=== PATIENT | female | born 1990 | race Caucasian/White ===

== ENCOUNTER 2017-01-10 12:29 | Emergency (ER) | payer OTHER ==
--- NOTE | 2017-01-10 16:07 | DIAGNOSTIC IMAGING REPORT ---
PROCEDURE: CT ABD/PELVIS WITH CONTRAST CLINICAL INDICATION: Right lower quadrant pain. TECHNIQUE: 125 ml of Isovue 300 were injected intravenously and axial images were obtained of the entire abdomen and pelvis with sagittal and coronal reformations. COMPARISON: Pelvic ultrasound 01/10/2017 FINDINGS: ABDOMEN: Lung base are clear. Heart size is normal. Liver, gallbladder, pancreas, spleen, adrenal glands, kidneys and abdominal aorta are normal. PELVIS: Normal appendix. IUD in place. Normal adnexa and bladder. Trace free fluid the pelvis. No mass or inflammatory changes. Bones are unremarkable. IMPRESSION: 1. Normal appendix 2. Trace free fluid in the pelvis likely resulting from an occult ruptured ovarian cyst. 3. IUD in place 4. Results discussed with MIMA Zimmerman All CT scans at this facility use dose modulation, iterative reconstruction, and/or weight-based dosing when appropriate to reduce radiation dose to as low as reasonably achievable.
--- NOTE | 2017-01-10 16:17 | ED CLINICAL REPORT ---
Clinical Report - Physicians/[facility] [address] [place] [address] 01/10/2017 12:31 Patient: SHIREEN DANIELS Arrived- By private vehicle. Historian- patient. HISTORY OF PRESENT ILLNESS Chief Complaint: ABDOMINAL PAIN. It is described as located in the right pelvis and in the pelvic area. This started just prior to arrival and is still present. The patient has had nausea. No vomiting or diarrhea. (patient reports severe abdominal pain since this morning. Patient reports last insertion of her IV was about 8 weeks previously, in mid November. She has had some cramping and spotting since. Reports similar pain of her right pelvis about 20 December, lasting a few days, however she had on the scene of the time.). REVIEW OF SYSTEMS No constipation, black stools, difficulty with urination, pain with urination or fever. No chest pain, difficulty breathing or chills. All systems otherwise negative, except as recorded above. PAST HISTORY Problems: Ovarian Cyst. Additional Surgeries: no known surgeries. Medications: Mirena Intrauterine. Zoloft Oral. Allergies: ASA. Neomycin. SOCIAL HISTORY Smoker- current status unknown. Alcohol use. No drug use. PHYSICAL EXAM Appearance: Alert. ENT: Pharynx normal. Neck: Normal inspection. CVS: Normal heart rate and rhythm. Heart sounds normal. Respiratory: No respiratory distress. Breath sounds normal. Chest nontender. No rales. Abdomen: Soft. Mild tenderness in the right lower quadrant and suprapubic area. Back: Normal inspection. No CVA tenderness. : Normal external exam. Speculum exam normal. No vaginal bleeding. Bimanual exam normal. No tenderness present on bimanual exam. (IUD in place, chaperoned with [employer]). Skin: Skin warm. Normal skin color. Neuro: Oriented X 3. No motor deficit. LABS, X-RAYS, AND EKG Abdominal CT: IMPRESSION: 1. Normal appendix 2. Trace free fluid in the pelvis likely resulting from an occult ruptured ovarian cyst. 3. IUD in place 4. Results discussed with Kirk Torres PAC All CT scans at this facility use dose modulation, iterative reconstruction, and/or weight-based dosing when appropriate to reduce radiation dose to as low as reasonably achievable. Electronically Final signed by:Thong Murdock MD 01/10/2017 4:07:19 PM. Pelvic Sonogram: IMPRESSION: 1. IUD in satisfactory position 2. 1.8 cm left ovarian corpus luteum cyst 3. Small amount of free fluid in the pelvis. Electronically Final signed by:Thong Murdock MD 01/10/2017 4:40:46 PM. Laboratory Tests: UA-Culture if indicated: (ANDREW: 01/10/2017 13:12) ( [facility] 01/10/2017 13:57) Final results Test Result Flag Units (Reference) URINE COLOR YELLOW URINE APPEARANCE CLEAR URINE GLUCOSE NEGATIVE (NEGATIVE) URINE BILIRUBIN NEGATIVE (NEGATIVE) URINE KETONE NEGATIVE (NEGATIVE) URINE SPECIFIC GRAVITY <= 1.005 L (1.010-1.030) URINE PH 6.5 (5.0-8.0) URINE PROTEIN NEGATIVE (NEGATIVE) URINE UROBILINOGEN 0.2 EU/dL (0.2-1.0) URINE NITRITE NEGATIVE (NEGATIVE) URINE BLOOD NEGATIVE (NEGATIVE) URINE LEUK ESTERASE NEGATIVE (NEGATIVE) URINE RBC RARE rbc/hpf (0-1) URINE WBC NONE SEEN wbc/hpf (0-1) URINE EPITHELIAL CELLS 0-1 EPI/hpf (0-5) URINE BACTERIA NONE SEEN (NONE SEEN) URINE COMMENT CULT NOT INDICATED URINE CULTURES ARE SET-UP BASED ON THE FOLLOWING CRITERIA:POSITIVE NITRITEPOSITIVE LEUKOCYTE ESTERASEGREATER THAN 10 WHITE BLOOD CELLSMODERATE (2+) OR GREATER BACTERIA Urine: (ANDREW: 01/10/2017 13:12) ( [facility] 01/10/2017 13:29) Final results Test Result Flag Units (Reference) URINE NEGATIVE CBC w Diff: (ANDREW: 01/10/2017 13:12) ( [facility] 01/10/2017 13:56) Final results Test Result Flag Units (Reference) WHITE BLOOD COUNT 10.0 K/uL (4.5-11.5) RED BLOOD COUNT 4.51 M/uL (4.00-5.20) HEMOGLOBIN 14.5 gm/dL (12.0-16.0) HEMATOCRIT 42.3 % (36.0-46.0) MEAN CELL VOLUME 94 fL (80-100) MEAN CORPUSCULAR HGB 32 pg (26-34) MEAN CORPUSCULAR HGB CONC 34 g/dL (31-37) RED CELL DISTRIBUTION WIDTH 13.0 % (11.6-14.8) PLATELET COUNT 171 K/uL (150-400) NEUTROPHIL % 71.1 % (50-75) LYMPH % 19.4 L % (25-40) MONO % 7.6 % (3-14) EOSINOPHIL % 1.4 % (0-4) BASOPHIL % 0.5 % (0-2) CMP: (ANDREW: 01/10/2017 13:12) ( MsgRcvd 01/10/2017 13:48) Final results Test Result Flag Units (Reference) GLUCOSE 66 L mg/dL (70-110) BUN 9 mg/dL (7-18) CREATININE 0.8 mg/dL (0.6-1.3) Estimated GFR >60 mL/min Estimated GFR- >60 mL/min Note: Persistent reduction over 3 months in eGFR<60 mL/min/1.73 m2 defines CKD. Patients with eGFR values>=60 mL/min/1.73 m2 may also have CKD if evidence ofpersistent proteinuria. Additional information may be foundat www.kidney.org. SODIUM 141 mmol/L (136-145) POTASSIUM 3.4 L mmol/L (3.5-5.1) CHLORIDE 104 mmol/L (98-107) CARBON DIOXIDE 25 mmol/L (21-32) CALCIUM 8.8 mg/dL (8.5-10.1) TOTAL PROTEIN 7.1 g/dL (6.4-8.2) ALBUMIN 3.9 g/dL (3.3-5.0) BILIRUBIN, TOTAL 0.3 mg/dL (0.0-1.0) ALKALINE PHOSPHATASE 102 U/L (46-116) AST (SGOT) 19 U/L (15-37) ALT (SGPT) 20 U/L (12-78) . PROGRESS AND PROCEDURES Course of Care: patient with cyst. Likely recent ovarian cyst rupture. Otherwise with no signs of torsion, abdominal mass, or signs of major infectious process. No signs of acute surgical abdomen. Patient stable. To f/u outpatient. 01/10/2017 16:54 BP: 109/69. HR: 82. RR: 18. O2 saturation: 100%. Temp: 98 F. Pain level now: 3/10. Patient is stable. Symptoms better. Patient/family counseled. Differential Diagnosis: I considered gastritis, gastroenteritis, acute appendicitis, diverticulitis, small bowel obstruction, adhesions, biliary colic, hepatitis, splenic injury, splenic rupture, intraabdominal abscess, urinary tract infection, cystitis, ovarian cyst and pelvic inflammatory disease as a possible cause of abdominal pain in this patient. This is a partial list of diagnoses considered. Disposition: Discharged. Condition: good. CLINICAL IMPRESSION Pelvic pain. Ruptured ovarian cyst. INSTRUCTIONS Drink plenty of fluids. Warnings: Further evaluation is necessary. SEDATIVE MEDICATION: You were given sedative medication during your visit. Do not drive or operate dangerous machinery. Prescription Medications: Hydrocodone/APAP 5mg / 325mg: take 1 orally every 8 hours. Dispense ten (10). No refill. Zofran (orally disintegrating tablets) 4 mg: take 1 orally every 6 hours for 3 days as needed for nausea. Dispense ten (10). No refill. Substitution is permissible. Follow-up: Follow up with doctor as needed. (Electronically signed by Susu Torres P.A.-C 01/10/2017 17:27)
--- NOTE | 2017-01-10 16:17 | ED ORDER SUMMARY ---
..... Patient: SHIREEN DANIELS OrderSheet [facility] VisitID: [id number] [address] [place] [address] 26y, F Registration Date/Time: 01/10/2017 ORDER SHEET Weight: 63.5 kg (stated) Allergies: ASA, Neomycin GENERAL ORDERS: UA-Culture if indicated Urgent (13:10 01/10/2017 LSullivan R.N. verbal order read back to EKoroleva P.A.-C) (Ack 13:12 KHoerner) (13:14 LSullivan R.N.) Urine Urgent (13:10 01/10/2017 LSullivan R.N. verbal order read back to EKoroleva P.A.-C) (Ack 13:12 KHoerner) (13:14 LSullivan R.N.) CBC w Diff Urgent (13:31 01/10/2017 EKoroleva P.A.-C) (Ack 13:34 KHoerner) (13:36 LSullivan R.N.) CMP Urgent (13:31 01/10/2017 EKoroleva P.A.-C) (Ack 13:34 KHoerner) (13:36 LSullivan R.N.) US Pelvic Complete w Transvag Urgent (14:15 01/10/2017 EKoroleva P.A.-C) (Ack 14:16 KHoerner) (15:53 KHoerner) CT Abd/Pel w Cont (Yes) (see lab) Urgent (15:28 01/10/2017 EKoroleva P.A.-C) (Ack 15:30 KHoerner) (15:53 KHoerner) Wet Prep (Cervix) (c) Urgent (15:51 01/10/2017 EKoroleva P.A.-C) (15:51 KHoerner) MEDICATION ORDERS: Phenergan IV 12.5 mg (HIGH ALERT MEDICATION, NOW) (13:31 01/10/2017 EKoroleva P.A.-C) (13:50 JSimbeck R.N.) IV FLUIDS: IV Saline Lock (13:09 01/10/2017 LSullivan RSaranyaN. verbal order read back to Monserrat Arnett) (13:14 Zafar RSaranyaN.) Dilaudid IV 0.5 mg (HIGH ALERT MEDICATION, NOW) (13:31 01/10/2017 Monserrat Mendiola.Kushal-C) (13:50 Fisheck RSaranyaN.) Dilaudid IV 0.5 mg (HIGH ALERT MEDICATION, NOW) (16:56 01/10/2017 LSullivan R.N. verbal order read back to Monserrat Ramirez-C) (16:57 LSullivan R.N.) ORDER SHEET NOTES: [Electronically signed by Noelle Cedillo R.N. (16:59 01/10/2017)] [Electronically signed by Susu Torres P.A.-C (17:27 01/10/2017)] [Electronically locked/signed by Noelle Cedillo R.N. (16:59 01/10/2017)]
--- NOTE | 2017-01-10 16:17 | ED NURSING NOTES ---
Clinical Report - Nurses [place] [address] [place] [address] 01/10/2017 12:31 Patient: SHIREEN DANIELS TRIAGE Triage time 12:45. Acuity: LEVEL 3. Chief Complaint: (Abd pain onset 0800 today RLQ >LLQ, nausea.). SEPSIS SCREEN: Sepsis Screen. Negative (no infection suspected/documented). KIMBERLI COMA SCORE: [place] Coma Scale: 15- eyes open spontaneously (4); best verbal response- oriented x 4 (5); best motor response- obeys commands (6). --12:53 Toribio Jha R.N. 12:45 01/10/17. BP: 122/67 (regular adult cuff) taken on the left arm, while lying. HR: 82. RR: 16. O2 saturation: 100% on room air. Temp: 98.1 F (oral). Pain level now: 04/21. --12:53 Toribio Jha R.N. Weight: 63.5 kg stated. Height/Length: 72 inches Per Patient. BMI: 19. --12:47 Toribio Jha R.N. Medications Zoloft Oral. --12:47 Toribio Jha R.N. Mirena Intrauterine. --12:48 Toribio Jha R.N. Allergies ASA. --12:46 Toribio Jha R.N. Neomycin. --12:47 Toribio Jha R.N. History Arrived by private vehicle. Historian: patient. Accompanied by friend. PAST MEDICAL HX: Last normal menstrual period unknown. SOCIAL HX: Heavy tobacco smoker (cigarette)- less than 1 pack per day. Occasional alcohol use. No drug use. ABUSE ASSESSMENT: No report of abuse. --12:53 Toribio Jha R.N. PROBLEMS: Ovarian Cyst. --12:48 Toribio Jha R.N. ADDITIONAL SURGERIES: no known surgeries. Interventions ID band on patient. To treatment room. --12:53 Toribio Jha R.N. PHYSICAL ASSESSMENT Ambulatory to room. GENERAL / NEURO / PSYCH: Alert. Appears in pain. HEENT: Mucous membranes are pink. RESPIRATORY: Respirations not labored. Breath sounds within normal limits. CVS: Capillary refill less than 2 seconds. GI / : The patient has had nausea. Abdomen soft. Abdominal tenderness. Guarding present. Bowel sounds within normal limits. SKIN: Skin is warm and dry. --13:36 Toribio Jha R.N. NURSING PROGRESS NOTES 13:14 01/10/2017 Site #1 started via IV in the right antecubital space with an 20g angiocath, with aseptic technique and good blood return; one attempt. Blood drawn: rainbow set. Labeled in the presence of the patient and sent to the lab. Saline lock flushed with 10 mL saline. --13:14 Noelle Cedillo R.N. 13:37 01/10/17. Patient ID band checked for patient name and birthdate: patient confirmed. Clean catch urine collected with return of yellow-colored clear urine; sample sent to lab. Specimen labeled in the presence of the patient. --13:37 Noelle Cedillo R.N. 13:45 01/10/2017 PHENERGAN (Promethazine HCl) IVP 12.5 mg given over 1 minute(s) via site #1. Allergies verified and confirmed 5 rights. IV patency established. IV site checked: no pain, redness, or swelling. IV flushed thoroughly pre- and post-medication administration. IVP given by RN. --13:50 Toribio Jha R.N. 13:47 01/10/2017 Dilaudid (HYDROmorphone HCl PF) IVP 0.5 mg given over 1 minute(s) via site #1. Allergies verified, confirmed 5 rights and sedative warning given to the patient. IV patency established. IV site checked: no pain, redness, or swelling. IV flushed thoroughly pre- and post-medication administration. IVP given by RN. --13:50 Toribio Jha R.N. 14:15 01/10/2017 PHENERGAN IVP Response: no adverse reaction symptoms have improved the patient feels better. --15:24 Toribio Jha R.N. 14:15 01/10/2017 Dilaudid IVP Response: no adverse reaction pain is improving. Symptoms have improved. --15:25 Toribio Jha R.N. 16:52 01/10/2017 Dilaudid (HYDROmorphone HCl PF) IVP 0.5 mg given over 1 minute(s) via site #1. Confirmed 5 rights and sedative warning given. --16:57 Noelle Cedillo R.N. 16:54 01/10/2017 Site #1 removed upon discharge. Catheter intact. Bandage applied. --16:57 Noelle Cedillo R.N. DISPOSITION / DISCHARGE Departure time: 16:54. Condition at departure: improved. No learning barriers present. Discharge instructions provided and reviewed with county engineer and the patient. Reviewed medication(s) information. Prescription(s) given to the patient. Reviewed referral to family practice for followup. Verbalized understanding. Written instructions provided. The patient was discharged home and accompanied by county engineer. She left the Emergency Department via private vehicle. --16:59 Noelle Cedillo R.N. 16:54 01/10/17. BP: 109/69. HR: 82. RR: 18. O2 saturation: 100%. Temp: 98 F. Pain level now: 10/19. --16:59 Noelle Cedillo R.N. Locked/Released at 01/10/2017 16:59 by Noelle Cedillo R.N.
--- NOTE | 2017-01-10 16:17 | ED ORDER SUMMARY ---
..... Patient: SHIREEN DANIELS OrderSheet [facility] VisitID: [id number] [address] [place] [address] 26y, F Registration Date/Time: 01/10/2017 ORDER SHEET Weight: 63.5 kg (stated) Allergies: ASA, Neomycin GENERAL ORDERS: UA-Culture if indicated Urgent (13:10 01/10/2017 LSullivan R.N. verbal order read back to EKoroleva P.A.-C) (Ack 13:12 KHoerner) (13:14 LSullivan R.N.) Urine Urgent (13:10 01/10/2017 LSullivan R.N. verbal order read back to EKoroleva P.A.-C) (Ack 13:12 KHoerner) (13:14 LSullivan R.N.) CBC w Diff Urgent (13:31 01/10/2017 EKoroleva P.A.-C) (Ack 13:34 KHoerner) (13:36 LSullivan R.N.) CMP Urgent (13:31 01/10/2017 EKoroleva P.A.-C) (Ack 13:34 KHoerner) (13:36 LSullivan R.N.) US Pelvic Complete w Transvag Urgent (14:15 01/10/2017 EKoroleva P.A.-C) (Ack 14:16 KHoerner) (15:53 KHoerner) CT Abd/Pel w Cont (Yes) (see lab) Urgent (15:28 01/10/2017 EKoroleva P.A.-C) (Ack 15:30 KHoerner) (15:53 KHoerner) Wet Prep (Cervix) (c) Urgent (15:51 01/10/2017 EKoroleva P.A.-C) (15:51 KHoerner) MEDICATION ORDERS: Phenergan IV 12.5 mg (HIGH ALERT MEDICATION, NOW) (13:31 01/10/2017 EKoroleva P.A.-C) (13:50 JSimbeck R.N.) IV FLUIDS: IV Saline Lock (13:09 01/10/2017 LSullivan RSaranyaN. verbal order read back to Monserrat Arnett) (13:14 Zafar RSaranyaN.) Dilaudid IV 0.5 mg (HIGH ALERT MEDICATION, NOW) (13:31 01/10/2017 Monserrat Mendiola.Kushal-C) (13:50 Fisheck RSaranyaN.) Dilaudid IV 0.5 mg (HIGH ALERT MEDICATION, NOW) (16:56 01/10/2017 LSullivan R.N. verbal order read back to Monserrat Ramirez-C) (16:57 LSullivan R.N.) ORDER SHEET NOTES: [Electronically signed by Noelle Cedillo R.N. (16:59 01/10/2017)] [Electronically signed by Susu Torres P.A.-C (17:27 01/10/2017)] [Electronically locked/signed by Noelle Cedillo R.N. (16:59 01/10/2017)]
--- NOTE | 2017-01-10 16:17 | ED NURSING NOTES ---
Clinical Report - Nurses [place] [address] [place] [address] 01/10/2017 12:31 Patient: SHIREEN DANIELS TRIAGE Triage time 12:45. Acuity: LEVEL 3. Chief Complaint: (Abd pain onset 0800 today RLQ >LLQ, nausea.). SEPSIS SCREEN: Sepsis Screen. Negative (no infection suspected/documented). KIMBERLI COMA SCORE: [place] Coma Scale: 15- eyes open spontaneously (4); best verbal response- oriented x 4 (5); best motor response- obeys commands (6). --12:53 Toribio Jha R.N. 12:45 01/10/17. BP: 122/67 (regular adult cuff) taken on the left arm, while lying. HR: 82. RR: 16. O2 saturation: 100% on room air. Temp: 98.1 F (oral). Pain level now: 04/21. --12:53 Toribio Jha R.N. Weight: 63.5 kg stated. Height/Length: 72 inches Per Patient. BMI: 19. --12:47 Toribio Jha R.N. Medications Zoloft Oral. --12:47 Toribio Jha R.N. Mirena Intrauterine. --12:48 Toribio Jha R.N. Allergies ASA. --12:46 Toribio Jha R.N. Neomycin. --12:47 Toribio Jha R.N. History Arrived by private vehicle. Historian: patient. Accompanied by friend. PAST MEDICAL HX: Last normal menstrual period unknown. SOCIAL HX: Heavy tobacco smoker (cigarette)- less than 1 pack per day. Occasional alcohol use. No drug use. ABUSE ASSESSMENT: No report of abuse. --12:53 Toribio Jha R.N. PROBLEMS: Ovarian Cyst. --12:48 Toribio Jha R.N. ADDITIONAL SURGERIES: no known surgeries. Interventions ID band on patient. To treatment room. --12:53 Toribio Jha R.N. PHYSICAL ASSESSMENT Ambulatory to room. GENERAL / NEURO / PSYCH: Alert. Appears in pain. HEENT: Mucous membranes are pink. RESPIRATORY: Respirations not labored. Breath sounds within normal limits. CVS: Capillary refill less than 2 seconds. GI / : The patient has had nausea. Abdomen soft. Abdominal tenderness. Guarding present. Bowel sounds within normal limits. SKIN: Skin is warm and dry. --13:36 Toribio Jha R.N. NURSING PROGRESS NOTES 13:14 01/10/2017 Site #1 started via IV in the right antecubital space with an 20g angiocath, with aseptic technique and good blood return; one attempt. Blood drawn: rainbow set. Labeled in the presence of the patient and sent to the lab. Saline lock flushed with 10 mL saline. --13:14 Noelle Cedillo R.N. 13:37 01/10/17. Patient ID band checked for patient name and birthdate: patient confirmed. Clean catch urine collected with return of yellow-colored clear urine; sample sent to lab. Specimen labeled in the presence of the patient. --13:37 Noelle Cedillo R.N. 13:45 01/10/2017 PHENERGAN (Promethazine HCl) IVP 12.5 mg given over 1 minute(s) via site #1. Allergies verified and confirmed 5 rights. IV patency established. IV site checked: no pain, redness, or swelling. IV flushed thoroughly pre- and post-medication administration. IVP given by RN. --13:50 Toribio Jha R.N. 13:47 01/10/2017 Dilaudid (HYDROmorphone HCl PF) IVP 0.5 mg given over 1 minute(s) via site #1. Allergies verified, confirmed 5 rights and sedative warning given to the patient. IV patency established. IV site checked: no pain, redness, or swelling. IV flushed thoroughly pre- and post-medication administration. IVP given by RN. --13:50 Toribio Jha R.N. 14:15 01/10/2017 PHENERGAN IVP Response: no adverse reaction symptoms have improved the patient feels better. --15:24 Toribio Jha R.N. 14:15 01/10/2017 Dilaudid IVP Response: no adverse reaction pain is improving. Symptoms have improved. --15:25 Toribio Jha R.N. 16:52 01/10/2017 Dilaudid (HYDROmorphone HCl PF) IVP 0.5 mg given over 1 minute(s) via site #1. Confirmed 5 rights and sedative warning given. --16:57 oNelle Cedillo R.N. 16:54 01/10/2017 Site #1 removed upon discharge. Catheter intact. Bandage applied. --16:57 Noelle Cedillo R.N. DISPOSITION / DISCHARGE Departure time: 16:54. Condition at departure: improved. No learning barriers present. Discharge instructions provided and reviewed with finance director and the patient. Reviewed medication(s) information. Prescription(s) given to the patient. Reviewed referral to family practice for followup. Verbalized understanding. Written instructions provided. The patient was discharged home and accompanied by finance director. She left the Emergency Department via private vehicle. --16:59 Noelle Cedillo R.N. 16:54 01/10/17. BP: 109/69. HR: 82. RR: 18. O2 saturation: 100%. Temp: 98 F. Pain level now: 10/19. --16:59 Noelle Cedillo R.N. Locked/Released at 01/10/2017 16:59 by Noelle Cedillo R.N.
--- NOTE | 2017-01-10 16:41 | DIAGNOSTIC IMAGING REPORT ---
PROCEDURE: US COMPLETE PELVIC W/TRANSVAG INDICATION: PAIN TECHNIQUE: Transabdominal and endovaginal aiken scale and color Doppler sonographic images of the female pelvis were obtained. COMPARISON: None. FINDINGS: TRANSABDOMINAL SCANS: Normal kidneys. The uterus not well visualized. TRANSVAGINAL SCANS: Anteverted uterus measures 5.2 x 4.2 x 2.[address] in satisfactory position. Myometrium is unremarkable. Endometrium measures 8 mm. Small amount of fluid in the endocervical canal. Right ovary measures 3.8 x 2.1 x 2.3 cm and left ovary 3.6 x 2.0 x 2.4 cm. Small peripheral follicles present. 1.8 cm left ovarian corpus luteum cyst. Normal vascular flow. Small left free fluid the pelvis. IMPRESSION: 1. IUD in satisfactory position 2. 1.8 cm left ovarian corpus luteum cyst 3. Small amount of free fluid in the pelvis.
--- NOTE | 2017-01-10 17:27 | ED MED RECONCILIATION SUMMARY ---
Patient: SHIREEN DANIELS Medication Reconciliation Report [facility] VisitID: [id number] [address] [place] [address] 26y, F Registration Date/Time: 01/10/2017 Weight: 63.5 kg Height/Length: 72 in. BMI: 19.0 ALLERGIES: ASA, Neomycin The patient's Home Medications are listed below: THE FOLLOWING MEDICATIONS NEED TO BE RECONCILED: Mirena Intrauterine Zoloft Oral The source(s) of the original Home Medication information: Not obtained. The following Medications were given to the patient in the Emergency Department: PHENERGAN [IVP] IVP 12.5 mg, administered: 01/10/2017 1:45:00 PM Dilaudid [IVP] IVP 0.5 mg, administered: 01/10/2017 1:47:00 PM Dilaudid [IVP] IVP 0.5 mg, administered: 01/10/2017 4:52:00 PM The following Medications were prescribed to the patient: Hydrocodone/APAP 5mg / 325mg: take 1 orally every 8 hours. Dispense ten (10). No refill. -- Susu Torres, P.A.-C Zofran (orally disintegrating tablets) 4 mg: take 1 orally every 6 hours for 3 days as needed for nausea. Dispense ten (10). No refill. Substitution is permissible. -- Susu Torres, P.A.-C
--- NOTE | 2017-01-10 17:27 | ED MAR SUMMARY ---
..... Medication Administration Record [facility] [address] [place] [address] Patient: SHIREEN DANIELS Visit ID: [id number] 26y, F Weight: 63.5 kg Height/Length: 72 in BMI: 19 ALLERGIES: Neomycin, ASA Given 13:45 01/10/2017 Toribio Jha R.N. Medication Administered: PHENERGAN [IVP] (PROMETHAZINE HCL), Dose: 12.5 mg IVP over 1 minute(s), Site: #1 right AC. Medication Ordered: Phenergan IV 12.5 mg (HIGH ALERT MEDICATION, NOW). Given 13:47 01/10/2017 Toribio Jha R.N. Medication Administered: DILAUDID [IVP] (HYDROMORPHONE HCL PF), Dose: 0.5 mg IVP over 1 minute(s), Site: #1 right AC. Medication Ordered: Dilaudid IV 0.5 mg (HIGH ALERT MEDICATION, NOW). Given 16:52 01/10/2017 Noelle Cedillo R.N. Medication Administered: DILAUDID [IVP] (HYDROMORPHONE HCL PF), Dose: 0.5 mg IVP over 1 minute(s), Site: #1 right AC. Medication Ordered: Dilaudid IV 0.5 mg (HIGH ALERT MEDICATION, NOW).
--- NOTE | 2017-01-10 17:27 | ED MAR SUMMARY ---
..... Medication Administration Record [facility] [address] [address] Patient: SHIREEN DANIELS Visit ID: [id number] 26y, F Weight: 63.5 kg Height/Length: 72 in BMI: 19 ALLERGIES: Neomycin, ASA Given 13:45 01/10/2017 Toribio Jha R.N. Medication Administered: PHENERGAN [IVP] (PROMETHAZINE HCL), Dose: 12.5 mg IVP over 1 minute(s), Site: #1 right AC. Medication Ordered: Phenergan IV 12.5 mg (HIGH ALERT MEDICATION, NOW). Given 13:47 01/10/2017 Toribio Jha R.N. Medication Administered: DILAUDID [IVP] (HYDROMORPHONE HCL PF), Dose: 0.5 mg IVP over 1 minute(s), Site: #1 right AC. Medication Ordered: Dilaudid IV 0.5 mg (HIGH ALERT MEDICATION, NOW). Given 16:52 01/10/2017 Noelle Cedillo R.N. Medication Administered: DILAUDID [IVP] (HYDROMORPHONE HCL PF), Dose: 0.5 mg IVP over 1 minute(s), Site: #1 right AC. Medication Ordered: Dilaudid IV 0.5 mg (HIGH ALERT MEDICATION, NOW).
--- NOTE | 2017-01-10 17:27 | ED DISCHARGE INSTRUCTIONS ---
Patient: SHIREEN DANIELS General Instructions [facility] VisitID: [id number] [address] [place] [address] 26y, F Registration Date/Time: 01/10/2017 Pelvic pain. Ruptured ovarian cyst. INSTRUCTIONS Drink plenty of fluids. Warnings: Further evaluation is necessary. SEDATIVE MEDICATION: You were given sedative medication during your visit. Do not drive or operate dangerous machinery. Prescription Medications: Hydrocodone/APAP 5mg / 325mg: take 1 orally every 8 hours. Dispense ten (10). No refill. Zofran (orally disintegrating tablets) 4 mg: take 1 orally every 6 hours for 3 days as needed for nausea. Dispense ten (10). No refill. Substitution is permissible. Follow-up: Follow up with doctor as needed. ADDITIONAL INFORMATION Ovarian Cyst The ovary is a small organ located on each side of the uterus. During each menstrual cycle a tiny egg sac forms in the ovary. If the egg is released but does not occur, this sac usually dissolves. Sometimes, the sac may fill with fluid. It then enlarges into a painful cyst. Usually the cyst will rupture or shrink on its own. In either case, the pain gradually goes away over the next 1-3 days. If the cyst does not shrink or rupture, it may cause continued pain. Home Care: Rest in bed and avoid heavy exertion until you are feeling better. Heat to the lower abdomen usually helps (heating pad or hot packs -- a small towel soaked in hot water). You may use acetaminophen (Tylenol) or ibuprofen (Motrin, Advil) to control pain, unless another pain medicine was prescribed. [NOTE: If you have chronic liver or kidney disease or ever had a stomach ulcer or GI bleeding, talk with your doctor before using these medicines.] Follow Up: See your doctor within the next 2-3 days if your pain doesnt improve. Otherwise, follow up with your doctor after your next period or as directed by our staff. Get Prompt Medical Attention if any of the following occur: Pain worsens or fails to respond to the above measures Fever of 100.4F (38C) or higher, or as directed by your healthcare provider Heavy vaginal bleeding (soaking one pad an hour for three hours) You feel weak or dizzy Fainting Passage of a pink or aiken tissue with menstrual bleeding Pelvic Pain, Uncertain Cause Based on your visit today, the exact cause of your pelvic pain is not certain. But your condition does not appear to be serious at this time. However, the signs of a serious problem may take more time to appear. Therefore, it is important for you to watch for any new symptoms or worsening of your condition. Home Care: Rest until you are feeling better. Avoid sexual intercourse until your pain goes away. You may use acetaminophen (Tylenol) or ibuprofen (Motrin, Advil) to control pain, unless another medicine was prescribed. [NOTE: If you have chronic liver or kidney disease or ever had a stomach ulcer or GI bleeding, talk with your doctor before using these medicines.] Follow Up with your doctor as advised. If a culture test was taken, call in two days for the results. If the culture is positive, you will be given more advice at that time. Otherwise, follow-up with your doctor or this facility as instructed. Get Prompt Medical Attention if any of the following occur: Fever of 100.4F (38C) or higher, or as directed by your healthcare provider Vaginal discharge Worsening pain Weakness, dizziness or fainting Unexpected vaginal bleeding or passage of aiken or white tissue from the vagina Pain that moves to the right lower abdomen Hydrocodone Bitartrate, Acetaminophen Oral tablet What is this medicine? ACETAMINOPHEN; HYDROCODONE (a set a MARQUES jose angel fen; hardik droe KOE done) is a pain reliever. It is used to treat mild to moderate pain. How should I use this medicine? Take this medicine by mouth. Swallow it with a full glass of water. Follow the directions on the prescription label. If the medicine upsets your stomach, take the medicine with food or milk. Do not take more than you are told to take. Talk to your meter/relay technician regarding the use of this medicine in children. This medicine is not approved for use in children. What side effects may I notice from receiving this medicine? Side effects that you should report to your doctor or health emergency care tech as soon as possible: allergic reactions like skin rash, itching or hives, swelling of the face, lips, or tongue breathing problems confusion feeling faint or lightheaded, falls stomach pain yellowing of the eyes or skin Side effects that usually do not require medical attention (report to your doctor or health emergency care tech if they continue or are bothersome): nausea, vomiting stomach upset What may interact with this medicine? alcohol antihistamines isoniazid medicines for depression, anxiety, or psychotic disturbances medicines for sleep muscle relaxants naltrexone narcotic medicines (opiates) for pain phenobarbital ritonavir tramadol What if I miss a dose? If you miss a dose, take it as soon as you can. If it is almost time for your next dose, take only that dose. Do not take double or extra doses. Where should I keep my medicine? Keep out of the reach of children. This medicine can be abused. Keep your medicine in a safe place to protect it from theft. Do not share this medicine with anyone. Selling or giving away this medicine is dangerous and against the law. Store at room temperature between 15 and 30 degrees C (59 and 86 degrees F). Protect from light. Keep container tightly closed. Throw away any unused medicine after the expiration date. Discard unused medicine and used packaging carefully. Pets and children can be harmed if they find used or lost packages. What should I tell my health care provider before I take this medicine? They need to know if you have any of these conditions: brain tumor Crohn's disease, inflammatory bowel disease, or ulcerative colitis drink more than 3 alcohol-containing drinks per day drug abuse or addiction head injury heart or circulation problems kidney disease or problems going to the bathroom liver disease lung disease, asthma, or breathing problems an unusual or allergic reaction to acetaminophen, hydrocodone, other opioid analgesics, other medicines, foods, dyes, or preservatives or trying to get breast-feeding What should I watch for while using this medicine? Tell your doctor or health emergency care tech if your pain does not go away, if it gets worse, or if you have new or a different type of pain. You may develop tolerance to the medicine. Tolerance means that you will need a higher dose of the medicine for pain relief. Tolerance is normal and is expected if you take the medicine for a long time. Do not suddenly stop taking your medicine because you may develop a severe reaction. Your body becomes used to the medicine. This does NOT mean you are addicted. Addiction is a behavior related to getting and using a drug for a non-medical reason. If you have pain, you have a medical reason to take pain medicine. Your doctor will tell you how much medicine to take. If your doctor wants you to stop the medicine, the dose will be slowly lowered over time to avoid any side effects. You may get drowsy or dizzy when you first start taking the medicine or change doses. Do not drive, use machinery, or do anything that may be dangerous until you know how the medicine affects you. Stand or sit up slowly. There are different types of narcotic medicines (opiates) for pain. If you take more than one type at the same time, you may have more side effects. Give your health care provider a list of all medicines you use. Your doctor will tell you how much medicine to take. Do not take more medicine than directed. Call emergency for help if you have problems breathing. The medicine will cause constipation. Try to have a bowel movement at least every 2 to 3 days. If you do not have a bowel movement for 3 days, call your doctor or health emergency care tech. Too much acetaminophen can be very dangerous. Do not take Tylenol (acetaminophen) or medicines that contain acetaminophen with this medicine. Many non-prescription medicines contain acetaminophen. Always read the labels carefully. You have been given the following additional information: Ovarian Cyst Pelvic Pain, Unknown Cause Hydrocodone Bitartrate, Acetaminophen Oral tablet (Electronically signed by Susu Torres P.A.-C 01/10/2017 17:27)
--- NOTE | 2017-01-10 17:27 | ED MED RECONCILIATION SUMMARY ---
Patient: SHIREEN DANIELS Medication Reconciliation Report [facility] VisitID: [id number] [address] [place] [address] 26y, F Registration Date/Time: 01/10/2017 Weight: 63.5 kg Height/Length: 72 in. BMI: 19.0 ALLERGIES: ASA, Neomycin The patient's Home Medications are listed below: THE FOLLOWING MEDICATIONS NEED TO BE RECONCILED: Mirena Intrauterine Zoloft Oral The source(s) of the original Home Medication information: Not obtained. The following Medications were given to the patient in the Emergency Department: PHENERGAN [IVP] IVP 12.5 mg, administered: 01/10/2017 1:45:00 PM Dilaudid [IVP] IVP 0.5 mg, administered: 01/10/2017 1:47:00 PM Dilaudid [IVP] IVP 0.5 mg, administered: 01/10/2017 4:52:00 PM The following Medications were prescribed to the patient: Hydrocodone/APAP 5mg / 325mg: take 1 orally every 8 hours. Dispense ten (10). No refill. -- Susu Torres, P.A.-C Zofran (orally disintegrating tablets) 4 mg: take 1 orally every 6 hours for 3 days as needed for nausea. Dispense ten (10). No refill. Substitution is permissible. -- Susu Torres, P.A.-C
== END 2017-01-10 16:54 | disposition home or self-care (01) ==
LOC: ED SRH 12:29
DX: R10.2 Pelvic and perineal pain (principal); N83.299 Other ovarian cyst, unspecified side; Z97.5 Presence of (intrauterine) contraceptive device; F17.210 Nicotine dependence, cigarettes, uncomplicated
CPT/HCPCS: 90004; 90100; 90195; 93070; 95059